=== PATIENT | female | born 1985 | race Caucasian/White ===

== ENCOUNTER 2021-10-05 17:20 | Inpatient (IN) | payer BC ==
[~2021-10-05] VITALS: Ht 170.2 cm; Wt 105.7 kg
[2021-10-05 19:11] LABS: HEMOGLOBIN 12.6 gm/dl (12.3-15.3); RED BLOOD COUNT 3.76 M/UL (4.00-5.10); WHITE BLOOD COUNT 15.3 K/UL (4.5-11.0)
[2021-10-05] MEDS ORDERED: PRENATAL VITAM1 EAC3 PO (19:18)
[2021-10-06 07:04] LABS: HEMOGLOBIN 11.1 gm/dl (12.3-15.3)
== END 2021-10-07 15:42 | disposition home or self-care (01) | DRG 807 ==
LOC: GENOP 17:20 → CDU 18:08 → OB 18:08 → CDU 10-06 10:25 → OB 10-06 11:07
PROVIDERS: ADMIT Obstetrics & Gynecology
PROC: 10E0XZZ Delivery of Products of Conception, External Approach (ICD-10-PCS; principal; 2021-10-05)
PROC: 0KQM0ZZ Repair Perineum Muscle, Open Approach (ICD-10-PCS; 2021-10-05)
PROC: 4A1HXCZ Monitoring of Products of Conception, Cardiac Rate, External Approach (ICD-10-PCS; 2021-10-05)
DX: O60.14X0 Preterm labor third trimester with preterm delivery third trimester, not applicable or unspecified (principal); Z37.0 Single live birth; Z3A.36 36 weeks gestation of pregnancy; O70.1 Second degree perineal laceration during delivery; Z20.822 Contact with and (suspected) exposure to COVID-19
CPT/HCPCS: 36415; 81001; 82800; 83518; 85014; 85018; 85025; J7120; U0002